=== PATIENT | male | born 1970 | race Caucasian/White ===

== ENCOUNTER 2017-01-16 09:32 | Inpatient (IN) | payer OTHER ==
[2017-01-16 10:04] VITALS: BMI 50.1
--- NOTE | 2017-01-16 12:48 | HP ---
CIWA Score - CIWA Score Nausea/Vomitin (NO N/V;ONLY DIARRHEA) Muscle Tremors: 4-Moderate,w/Arms Extend Anxiety: 4-Mod. Anxious/Guarded Agitation: 3 Paroxysmal Sweats: 1-Minimal Palms Moist Orientation: 0-Oriented Tacttile Disturbances: 3-Moderate Itch/Numb/Burn Auditory Disturbances: 0-None Visual Disturbances: 0-None Headache: 1-Very Mild CIWA-Ar Total Score: 19 Admission ROS S - HPI Chief Complaint: DETOX TX FOR ALCOHOL AND XANAX DEPENDENCE Allergies/Adverse Reactions: Allergies Allergy/AdvReac Type Severity Reaction Status Date / Time No Known Allergies Allergy Verified 01/16/17 10:49 History of Present Illness: 46 Y/O H/M WITH A HX OF XANAX AND ALCOHOL DEPENDENCE SEEKING DETOX TX. [facility] WITH METHADONE 130 MG PO DAILY, LAST DOSE TODAY. Exam Limitations: No Limitations - Ebola screening Have you traveled outside of the country in the last 21 days: No Have you had contact with anyone from an Ebola affected area: No Have you been sick,other than usual withdrawal symptoms: No Do you have a fever: No - Review of Systems Constitutional: Chills, Night Sweats, Changes in sleep EENT: reports: Blurred Vision, Tearing, Dental Problems (MISSING TEETH/CAVITIES IN THE PAST) Respiratory: reports: No Symptoms reported Cardiac: reports: Lightheadedness GI: reports: Constipated, Diarrhea, Nausea, Vomiting : reports: No Symptoms Reported Musculoskeletal: reports: Joint Pain, Muscle Pain Integumentary: reports: Erythema (LEFT LOWER LEG--CELLULITIS) Neuro: reports: Tremors, Unsteady Gait Endocrine: reports: No Symptoms Reported Hematology: reports: Blood Clots (LEFT LEG. PT REPORTS WAS TREATED AT [facility] IN 2016. NOT CURRENTLY TAKING ANTICOAGULANT TX. WAS ALSO TREATED WITH ANTIBIOTICS FOR CELLULITIS ON LEFT LEG SAME PERIOD.) Psychiatric: reports: Orientated x3, Anxious, Depressed Other Systems: Reviewed and Negative Patient History - Patient Medical History Hx Anemia: No Hx Asthma: No Hx Chronic Obstructive Pulmonary Disease (COPD): No Hx Cancer: No Hx Cardiac Disorders: Yes (Endocarditis) Hx Congestive Heart Failure: No Hx Hypertension: No Hx Hypercholesterolemia: No HX Cerebrovascular Accident: No Hx Seizures: No Hx Dementia: No Hx Diabetes: No Hx Gastrointestinal Disorders: No Hx Liver Disease: No Hx Genitourinary Disorders: No Hx Sexually Transmitted Disorders: No (DENIES) Hx Renal Disease (ESRD): No Hx Thyroid Disease: No Hx Human Immunodeficiency Virus (HIV): No (NEGATIVE HX) Hx Hepatitis C: Yes Hx Depression: Yes (NEVER ON MED BUT WANTS PSYCH EVAL) Hx Suicide Attempt: No (DENIES) Hx Bipolar Disorder: No Hx Schizophrenia: No - Patient Surgical History Past Surgical History: No Hx Neurologic Surgery: No Hx Cataract Extraction: No Hx Cardiac Surgery: No Hx Lung Surgery: No Hx Breast Surgery: No Hx Breast Biopsy: No Hx Abdominal Surgery: No Hx Appendectomy: No Hx Cholecystectomy: No Hx Genitourinary Surgery: No Hx Orthopedic Surgery: No Anesthesia Reaction: No - PPD History Previous Implant?: Yes Documented Results: Positive w/proof Implanted On Prior [facility] Admission?: Yes Date: 11/21/12 Results: CXR TBD PPD to be Administered?: No - Reproductive History Patient is a Female of Child Bearing Age (11 -55 yrs old): No (MALE) Patient : (N/A) - Smoking Cessation Smoking history: Never smoked Have you smoked in the past 12 months: No Hx Chewing Tobacco Use: No Initiated information on smoking cessation: No - Substance & Tx. History Hx Alcohol Use: Yes (BEER) Hx Substance Use: Yes (XANAX) Substance Use Type: Alcohol, Tranquilizers Hx Substance Use Treatment: Yes - Substances Abused Alprazolam (Xanax) Route: Oral Frequency: Daily Amount used: 2 pills Age of first use: 47 Date of Last Use: 01/15/17 Alcohol Route: Oral Frequency: Daily Amount used: Beer 6 pack Age of first use: 15 Date of Last Use: 01/15/17 Family Disease History - Family Disease History Family Disease History: Diabetes: Grandparent (GF;GM ESOPHAGEAL CA/EMPHYSEMA), Father (HTN/GOUT/QUAD BYPASS SX;TOE AMPUTATION), Heart Disease: Father, CA: Grandparent, Respiratory: Grandparent, Father, Other: Mother (ARTHRITIS) Admission Physical Exam BHS - Vital Signs Vital Signs: Vital Signs - 24 hr 01/16/17 10:01 Temperature 98.3 F Pulse Rate 87 Respiratory 18 Rate Blood Pressure 121/80 - Physical General Appearance: Yes: Moderate Distress, Irritable, Anxious HEENTM: Yes: EOMI, Normocephalic, ARTI, Pharynx Normal Respiratory: Yes: Chest Non-Tender, Lungs Clear, Normal Breath Sounds, No Respiratory Distress Neck: Yes: Supple, Trachea in good position Breast: Yes: Breast Exam Deferred Cardiology: Yes: Regular Rhythm, Regular Rate, S1, S2 Abdominal: Yes: Normal Bowel Sounds, Non Tender, Protuberent Genitourinary: Yes: Other (N/A) Back: Yes: Within Normal Limits Musculoskeletal: Yes: full range of Motion, Gait Steady Extremities: Yes: Normal Range of Motion, Non-Tender, Tremors Neurological: Yes: 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-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 NML intact, Fully Oriented, Alert, Motor Strength 5/5 Integumentary: Yes: Dry, Warm Lymphatic: Yes: Within Normal Limits - Diagnostic (1) Sedative, hypnotic or anxiolytic dependence with withdrawal, uncomplicated Current Visit: Yes Status: Acute (2) Alcohol dependence with uncomplicated withdrawal Current Visit: Yes Status: Acute (3) Methadone maintenance therapy patient Current Visit: Yes Status: Chronic (4) History of endocarditis Current Visit: Yes Status: Resolved (5) Obesity, morbid, BMI 50 or higher Current Visit: Yes Status: Chronic Cleared for Admission [facility] - Detox or Rehab [facility] Level of Care: Medically Managed Detox Regimen/Protocol: Valium [facility] Breath Alcohol Content Breath Alcohol Content: 0 Urine Drug Screen - Results Drug Screen Negative: No Urine Drug Screen Results: BZO-Benzodiazepines, MTD-Methadone
[2017-01-16] MEDS ORDERED: LOPERAMIDE HCL 2 MG CAPSULE PO PRN (13:26)
[2017-01-16] MEDS ORDERED: MAGNESIUM HYDROX 2400MG/30ML ORAL SUSPENSION 30 ML CUP PO PRN (13:26)
[2017-01-16] MEDS ORDERED: guaiFENesin/D-METHORPHAN HB 10 ML UNIT-DOSE CUPS PO PRN (13:26)
[2017-01-16] MEDS ORDERED: ACETAMINOPHEN 325 MG TABLET (FP) PO PRN (13:26)
[2017-01-16] MEDS ORDERED: P-EPHED 60MG/TRIPROLIDI 2.5MG TABLET PO PRN (13:26)
[2017-01-16] MEDS ORDERED: MENTHOL/PHENOL 1 EACH UD MM PRN (13:26)
[2017-01-16] MEDS ORDERED: MAGNESIUM CITRATE 300 ML BOTTLE PO PRN (13:26)
[2017-01-16] MEDS ORDERED: IBUPROFEN 400 MG TABLET (FP) PO PRN (13:26)
[2017-01-16] MEDS ORDERED: MAG HYDROX/AL HYDROX/SIMETH 30 ML UNIT-DOSE CUP PO PRN (13:26)
[2017-01-16] MEDS ORDERED: diazePAM 5 MG TABLET PO ONE (13:59)
[2017-01-16 15:07] LABS: HIV 1 & 2 AB NEGATIVE; HIV 1 AGp24 NEGATIVE
[2017-01-16 16:31] LABS: URINE APPEARANCE SLCLOUDY; URINE BILIRUBIN NEGATIVE (NEGATIVE); URINE BLOOD NEGATIVE (NEGATIVE); URINE COLOR DKYELLOW; URINE GLUCOSE (UA) NEGATIVE (NEGATIVE); URINE KETONE NEGATIVE (NEGATIVE); URINE LEUK ESTERASE NEGATIVE (NEGATIVE); URINE NITRITE NEGATIVE (NEGATIVE); URINE PROTEIN NEGATIVE (NEGATIVE); URINE UROBILINOGEN NEGATIVE mg/dL (0.2-1.0)
[2017-01-16 16:41] LABS: ALBUMIN 3.4 g/dl (3.4-5.0); ANION GAP 4 (8-16); CALCIUM 9.5 mg/dL (8.5-10.1); CO2 30 mmol/L (21-32); GLUCOSE,RANDOM 128 mg/dL (74-106); SGOT/AST 155 U/L (15-37); SGPT/ALT 171 U/L (12-78)
[2017-01-16 16:43] LABS: ALK PHOS 88 U/L (45-117); BILIRUBIN,TOTAL 0.4 mg/dL (0.2-1.0); MCH 27.8 pg (25.7-33.7); MCHC 32.9 g/dl (32.0-35.9); MEAN CELL VOLUME 84.3 fl (80-96); MEAN PLT VOLUME 9.3 fl (7.5-11.1); PLATELET COUNT 205 K/MM3 (134-434); RDW 15.7 % (11.9-15.9); TOT PROT 8.4 g/dl (6.4-8.2); WHITE BLOOD COUNT 6.9 K/mm3 (4.0-10.0)
[2017-01-16] MEDS: diazePAM 5 MG TABLET PO PRN ×2 (18:47→22:12)
[2017-01-16] MEDS: THIAMINE HCL 100 MG TABLET (FP) PO SCH (22:12)
[2017-01-16] MEDS: diazePAM 5 MG TABLET PO SCH (23:02)
[2017-01-17] MEDS ORDERED: METHADONE HCL 40 MG DISPERSABLE TABLET ONE (04:37)
[2017-01-17] MEDS ORDERED: METHADONE HCL 10 MG TABLET ONE (04:37)
[2017-01-17] MEDS ORDERED: METHADONE HCL 10 MG TABLET PO SCH (06:00)
[2017-01-17] MEDS: METHADONE 120 MG, METHADONE 10 MG PO SCH (06:01)
[2017-01-17] MEDS: diazePAM 5 MG TABLET PO SCH ×3 (06:01→22:31)
[2017-01-17] MEDS: diazePAM 5 MG TABLET PO PRN ×2 (08:24→12:59)
[2017-01-17] MEDS: PRENATAL VITAMINS W/ FOLIC ACID TABLET (FP) PO SCH (10:14)
--- NOTE | 2017-01-17 11:02 | PN ---
S CIWA - CIWA Score Nausea/Vomitin-No Nausea/No Vomiting Muscle Tremors: 4-Moderate,w/Arms Extend Anxiety: 3 Agitation: 4-Moderately Restless Paroxysmal Sweats: 3 Orientation: 0-Oriented Tacttile Disturbances: 0-None Auditory Disturbances: 0-None Visual Disturbances: 0-None Headache: 1-Very Mild CIWA-Ar Total Score: 15 BHS Progress Note (SOAP) Subjective: agitation anxiety sweats interrupted sleep rash on my leg Objective: 01/17/17 11:13 Vital Signs Temperature 97.5 F L 01/17/17 10:34 Pulse Rate 71 01/17/17 10:34 Respiratory Rate 20 01/17/17 10:34 Blood Pressure 102/68 01/17/17 10:34 O2 Sat by Pulse Oximetry (%) Laboratory Tests 01/16/17 01/16/17 01/16/17 11:15 11:30 11:30 WBC 6.9 RBC 4.72 Hgb 13.1 Hct 39.7 MCV 84.3 MCH 27.8 MCHC 32.9 RDW 15.7 Plt Count 205 MPV 9.3 Sodium 137 Potassium 4.3 Chloride 103 Carbon Dioxide 30 Anion Gap 4 L BUN 12 Creatinine 1.0 D Creat Clearance w eGFR > 60 Random Glucose 128 H D Calcium 9.5 Total Bilirubin 0.4 D AST 155 H D ALT 171 H D Alkaline Phosphatase 88 Total Protein 8.4 H Albumin 3.4 Urine Color Urine Appearance Urine pH Ur Specific [place] Urine Protein Urine Glucose (UA) Urine Ketones Urine Blood Urine Nitrite Urine Bilirubin Urine Urobilinogen HIV 1&2 Antibody Screen Negative HIV P24 Antigen Negative 01/16/17 15:00 WBC RBC Hgb Hct MCV MCH MCHC RDW Plt Count MPV Sodium Potassium Chloride Carbon Dioxide Anion Gap BUN Creatinine Creat Clearance w eGFR Random Glucose Calcium Total Bilirubin AST ALT Alkaline Phosphatase Total Protein Albumin Urine Color Dkyellow Urine Appearance Slcloudy Urine pH 5.0 Ur Specific [place] 1.025 Urine Protein Negative Urine Glucose (UA) Negative Urine Ketones Negative Urine Blood Negative Urine Nitrite Negative Urine Bilirubin Negative Urine Urobilinogen Negative HIV 1&2 Antibody Screen HIV P24 Antigen elevated ast/alt aaox3 ambulating no acute distress d/c tylenol repeat labs Assessment: 01/17/17 11:15 withdrawal sx Plan: continue detox increase fluids lidex ordered for leg
[2017-01-17] MEDS ORDERED: FLU VACCINE QUAD 60 MCG/0.5 ML (MDV 17-18) IM ONE (12:00)
[2017-01-17] MEDS: FLUOCINONIDE 0.05% CREAM (15 GM TUBE) TP SCH ×3 (15:27→23:02)
--- NOTE | 2017-01-17 17:21 | CONSULT ---
[facility] Psychiatric Consult - Data Date of interview: 01/17/17 Admission source: [facility] Identifying data: Readmission to [facility] for this 46 y/o male seeking detox treatment on for alcohol and xanax dependence (patient is on methadone maintenance = 130 mg/day).Patient is single,father of one,domiciled ,unemployed and supported on food stamps. Substance Abuse History: Confirmed by patient in this interview. Smoking Cessation. Smoking history: Never smoked. Have you smoked in the past 12 months: No. Hx Chewing Tobacco Use: No. Initiated information on smoking cessation: No. - Substance & Tx. History. Hx Alcohol Use: Yes (BEER). Hx Substance Use: Yes (XANAX). Substance Use Type: Alcohol, Tranquilizers. Hx Substance Use Treatment: Yes. - Substances Abused. Alprazolam (Xanax). Route: Oral. Frequency: Daily. Amount used: 2 pills. Age of first use: 47. Date of Last Use: 01/15/17. Alcohol. Route: Oral. Frequency: Daily. Amount used: Beer 6 pack. Age of first use: 15. Date of Last Use: 01/15/17 Medical History: Remarkable for a history of endocarditis,hepatitis C and cellulitis of left leg.Morbid obesity. Psychiatric History: Patient denies history of psychiatric hospitalizations.Mr Jensen is currently on methadone 130 mg/day.No reported history of suicide attempts. Physical/Sexual Abuse/Trauma History: Patient denies. Additional Comment: Urine Drug Screen Results: BZO-Benzodiazepines, MTD- Methadone.Noted. Mental Status Exam - Mental Status Exam Alert and Oriented to: Time, Place, Person Cognitive Function: Good Patient Appearance: Well Groomed (obese,short stature) Mood: Withdrawn, Hopeful Affect: Mood Congruent Patient Behavior: Appropriate, Cooperative Speech Pattern: Clear (fluent in azeri) Voice Loudness: Normal Thought Process: Goal Oriented Thought Disorder: Not Present Hallucinations: Denies Suicidal Ideation: Denies Homicidal Ideation: Denies Insight/Judgement: Poor Sleep: Poorly Appetite: Good Muscle strength/Tone: Normal Gait/Station: Normal Psychiatric Findings - Problem List ([place] 1, 2,3) (1) Alcohol dependence with uncomplicated withdrawal Current Visit: Yes Status: Acute (2) Sedative, hypnotic or anxiolytic dependence with withdrawal, uncomplicated Current Visit: Yes Status: Acute (3) Opioid dependence on agonist therapy Current Visit: Yes Status: Acute (4) Obesity, morbid, BMI 50 or higher Current Visit: Yes Status: Chronic (5) Insomnia Current Visit: Yes Status: Acute - Initial Treatment Plan Initial Treatment Plan: Psychoeducation.Detoxification.Benadryl 50 mg po hs.Side effects/benefits reviewed with patient.He consents (verbally) to follow this careplan.Observation.
[2017-01-17] MEDS: diphenhydrAMINE HCL 50 MG CAPSULE PO PRN (22:31)
[2017-01-17] MEDS: THIAMINE HCL 100 MG TABLET (FP) PO SCH (22:31)
[2017-01-18] MEDS ORDERED: METHADONE HCL 40 MG DISPERSABLE TABLET ONE (04:04)
[2017-01-18] MEDS ORDERED: METHADONE HCL 10 MG TABLET ONE (04:05)
[2017-01-18] MEDS: METHADONE 120 MG, METHADONE 10 MG PO SCH (05:45)
[2017-01-18] MEDS: diazePAM 5 MG TABLET PO PRN ×2 (05:46→16:59)
--- NOTE | 2017-01-18 09:51 | EKG ---
Test Reason : Blood Pressure : / mmHG Vent. Rate : 073 BPM Atrial Rate : 073 BPM P-R Int : 150 ms QRS Dur : 082 ms QT Int : 392 ms P-R-T Axes : 043 017 044 degrees QTc Int : 431 ms NORMAL SINUS RHYTHM NORMAL ECG NO PREVIOUS ECGS AVAILABLE Confirmed by PILLO HUMPHREYS, EBONI ([id number]) on 01/18/2017 9:51:20 AM Referred By: Phu Mullen Confirmed By:EBONI FERRO MD
[2017-01-18] MEDS: FLUOCINONIDE 0.05% CREAM (15 GM TUBE) TP SCH ×4 (10:13→22:11)
[2017-01-18] MEDS: diazePAM 5 MG TABLET PO SCH ×2 (10:13→22:10)
[2017-01-18] MEDS: PRENATAL VITAMINS W/ FOLIC ACID TABLET (FP) PO SCH (10:13)
[2017-01-18] MEDS ORDERED: hydrOXYzine PAMOATE 50 MG CAPSULE (FP) PO PRN (10:41)
--- NOTE | 2017-01-18 10:47 | PN ---
[facility] CIWA - CIWA Score Nausea/Vomitin-No Nausea/No Vomiting Muscle Tremors: 3 Anxiety: 4-Mod. Anxious/Guarded Agitation: 4-Moderately Restless Paroxysmal Sweats: 3 Orientation: 0-Oriented Tacttile Disturbances: 0-None Auditory Disturbances: 0-None Visual Disturbances: 0-None Headache: 0-None Present CIWA-Ar Total Score: 14 BHS Progress Note (SOAP) Subjective: anxiety sweats shakes interrupted sleep irritable Objective: 01/18/17 10:44 Vital Signs Temperature 97.7 F 01/18/17 06:20 Pulse Rate 73 01/18/17 06:20 Respiratory Rate 18 01/18/17 06:20 Blood Pressure 137/102 01/18/17 06:20 O2 Sat by Pulse Oximetry (%) Laboratory Tests 01/16/17 01/16/17 01/16/17 11:15 11:30 11:30 WBC 6.9 RBC 4.72 Hgb 13.1 Hct 39.7 MCV 84.3 MCH 27.8 MCHC 32.9 RDW 15.7 Plt Count 205 MPV 9.3 Sodium 137 Potassium 4.3 Chloride 103 Carbon Dioxide 30 Anion Gap 4 L BUN 12 Creatinine 1.0 D Creat Clearance w eGFR > 60 Random Glucose 128 H D Calcium 9.5 Total Bilirubin 0.4 D AST 155 H D ALT 171 H D Alkaline Phosphatase 88 Total Protein 8.4 H Albumin 3.4 Urine Color Urine Appearance Urine pH Ur Specific [place] Urine Protein Urine Glucose (UA) Urine Ketones Urine Blood Urine Nitrite Urine Bilirubin Urine Urobilinogen RPR Titer HIV 1&2 Antibody Screen Negative HIV P24 Antigen Negative 01/16/17 01/16/17 11:30 15:00 WBC RBC Hgb Hct MCV MCH MCHC RDW Plt Count MPV Sodium Potassium Chloride Carbon Dioxide Anion Gap BUN Creatinine Creat Clearance w eGFR Random Glucose Calcium Total Bilirubin AST ALT Alkaline Phosphatase Total Protein Albumin Urine Color Dkyellow Urine Appearance Slcloudy Urine pH 5.0 Ur Specific [place] 1.025 Urine Protein Negative Urine Glucose (UA) Negative Urine Ketones Negative Urine Blood Negative Urine Nitrite Negative Urine Bilirubin Negative Urine Urobilinogen Negative RPR Titer Nonreactive HIV 1&2 Antibody Screen HIV P24 Antigen elevated ast/alt; d/c tylenol aaox3 ambulating no acute distress repeat liver enzymes Assessment: 01/18/17 10:45 withdrawal sx Plan: continue detox increase fluids visitril prn clonidine 0.1mg daily with parameters
[2017-01-18] MEDS: cloNIDine HCL 0.1 MG TABLET PO SCH (11:46)
[2017-01-18] MEDS: THIAMINE HCL 100 MG TABLET (FP) PO SCH (22:10)
[2017-01-18] MEDS: diphenhydrAMINE HCL 50 MG CAPSULE PO PRN (22:10)
[2017-01-19] MEDS ORDERED: METHADONE HCL 40 MG DISPERSABLE TABLET ONE (04:22)
[2017-01-19] MEDS ORDERED: METHADONE HCL 10 MG TABLET ONE (04:23)
[2017-01-19] MEDS: METHADONE 120 MG, METHADONE 10 MG PO SCH (05:13)
[2017-01-19 10:05] LABS: INR 1.13 (0.82-1.09); PROTHROMBIN TIME (PATIENT) 12.5 SEC (9.98-11.88)
[2017-01-19] MEDS: FLUOCINONIDE 0.05% CREAM (15 GM TUBE) TP SCH ×4 (10:15→22:05)
[2017-01-19] MEDS: cloNIDine HCL 0.1 MG TABLET PO SCH (10:15)
[2017-01-19] MEDS: diazePAM 5 MG TABLET PO SCH ×2 (10:15→22:04)
[2017-01-19] MEDS: PRENATAL VITAMINS W/ FOLIC ACID TABLET (FP) PO SCH (10:15)
[2017-01-19 10:27] LABS: SGOT/AST 139 U/L (15-37); SGPT/ALT 148 U/L (12-78)
--- NOTE | 2017-01-19 11:30 | PN ---
BHS Progress Note (SOAP) Subjective: feeling much better sweats Objective: 01/19/17 11:29 Vital Signs Temperature 97.6 F 01/19/17 06:54 Pulse Rate 68 01/19/17 06:54 Respiratory Rate 18 01/19/17 06:54 Blood Pressure 125/70 01/19/17 06:54 O2 Sat by Pulse Oximetry (%) AAOx3 ambulating no acute distress Assessment: 01/19/17 11:29 mild withdrawal sx Plan: continue detox increase fluids d/c in am
[2017-01-19] MEDS: diphenhydrAMINE HCL 50 MG CAPSULE PO PRN (22:05)
[2017-01-19] MEDS: THIAMINE HCL 100 MG TABLET (FP) PO SCH (22:05)
[2017-01-20] MEDS ORDERED: METHADONE HCL 10 MG TABLET ONE (05:12)
[2017-01-20] MEDS ORDERED: METHADONE HCL 40 MG DISPERSABLE TABLET ONE (05:12)
[2017-01-20] MEDS: METHADONE 120 MG, METHADONE 10 MG PO SCH (05:34)
[2017-01-20 06:32] VITALS: BP 118/69; PULSE 63; TEMP 97.7
--- NOTE | 2017-01-20 09:03 | DS ---
[facility] Detox Discharge Summary Admission Date: 01/16/17 Discharge Date: 01/20/17 - History Present History: Alcohol Dependence, Cocaine Dependence, Sedative Dependence, MMTP - Physical Exam Results Vital Signs: Vital Signs Temperature 97.7 F 01/20/17 06:00 Pulse Rate 63 01/20/17 06:00 Respiratory Rate 20 01/20/17 06:00 Blood Pressure 118/69 01/20/17 06:00 O2 Sat by Pulse Oximetry (%) - Treatment Hospital Course: Detox Protocol Followed, Detoxed Safely, Responded well, Discharged Condition Good, Rehab Referral Accepted - Medication Discharge Medications: Ambulatory Orders NK [No Known Home Medication] 01/16/17 - Diagnosis (1) Alcohol dependence with uncomplicated withdrawal Current Visit: Yes Status: Chronic (2) Sedative, hypnotic or anxiolytic dependence with withdrawal, uncomplicated Current Visit: Yes Status: Chronic (3) Methadone maintenance therapy patient Current Visit: Yes Status: Chronic (4) Obesity, morbid, BMI 50 or higher Current Visit: Yes Status: Chronic (5) Cocaine dependence Current Visit: Yes Status: Chronic - AMA Did Patient Leave Against Medical Advice: No (going home)
[2017-01-20] MEDS ORDERED: diazePAM 5 MG TABLET PO SCH (10:00)
== END 2017-01-20 09:06 | disposition home or self-care (01) | DRG 773 ==
LOC: YASAS 09:32 → Y6N 13:49
PROVIDERS: ADMIT Internal Medicine; ATTEND Internal Medicine
PROC: HZ2ZZZZ Detoxification Services for Substance Abuse Treatment (ICD-10-PCS; principal; 2017-01-16)
DX: F11.20 Opioid dependence, uncomplicated (principal); F13.230 Sedative, hypnotic or anxiolytic dependence with withdrawal, uncomplicated; F10.230 Alcohol dependence with withdrawal, uncomplicated; F14.20 Cocaine dependence, uncomplicated; G47.00 Insomnia, unspecified; L03.116 Cellulitis of left lower limb; Z86.718 Personal history of other venous thrombosis and embolism; Z86.79 Personal history of other diseases of the circulatory system
CPT/HCPCS: 36415; 71020-TC; 80053; 81003; 84450; 84460; 85027; 85610; 86593; 87389; 90688; 93005; 93010; G0008